=== PATIENT | male | born 1935 | race Caucasian/White ===

== ENCOUNTER 2023-02-19 15:04 | Emergency (ER) | payer MEDICARE, OTHER, SELFPAY ==
[2021-09-24 18:38] VITALS: BMI 29.2
[2023-02-19 15:15] VITALS: BP 142/68; PULSE 89; RESP 20; TEMP 36.3; O2SAT 98; BMI 31.2
[2023-02-19 15:32] VITALS: BP 199/86; PULSE 85; RESP 20; TEMP 36.5; O2SAT 99
--- NOTE | 2023-02-19 15:35 | DI.RAD.S_ITS ---
PROCEDURE: XR CHEST 1V INDICATIONS: Shortness of breath TECHNIQUE: One view of the chest was acquired. COMPARISON: [facility], , XR CHEST 1V, 12/16/2020, 13:04. [facility], , CHEST 2 VIEW, 10/10/2015, 11:05. FINDINGS: Surgical changes and devices: None. Lungs and pleura: Lungs are difficult to accurately assess due to reduced inspiratory volume and there is at least mild lung base atelectasis. No pleural effusions or pneumothorax. Mediastinum: Mediastinal contours appear normal. Heart size is normal. Bones and chest wall: No suspicious bony lesions. Overlying soft tissues appear unremarkable. IMPRESSION: Reduced inspiratory volume, which causes mild lung base atelectasis. A definite pneumonia is not found. Depending on the clinical status follow-up by deep inspiratory two-view chest may be warranted. Dictated by: Kraig Vaughn M.D. on 02/19/2023 at 16:05 Approved by: Kraig Vaughn M.D. on 02/19/2023 at 16:06
--- NOTE | 2023-02-19 15:42 | ED.GENADULT ---
HPI - General Adult General Chief complaint: Shortness of Breath/Dyspnea Stated complaint: cough Time Seen by Provider: 02/19/23 15:33 Source: patient Mode of arrival: Ambulatory Limitations: no limitations History of Present Illness HPI narrative: 87-year-old male. History of CLL. Is being followed by Oncology. He states he is just being ?monitored? currently. Not receiving active treatment. No prior history of heart disease. He is here for evaluation of approximately 3 weeks of progressively worsening cough/orthopnea, shortness of breath. No chest pain. He is having lower extremity swelling that has been there for the past week or so. Abdominal swelling that has also been the past week as well. He contacted his primary doctor's office who advised that he come to the emergency department if his symptoms worsened. He is having to sleep in a chair at night because he can not lay flat because of his shortness of breath. He denies sore throat. Is having quite a bit of sinus congestion. No headache. Related Data Home Medications Medication Instructions Recorded Confirmed aspirin 81 mg tablet,delayed 81 mg PO BEDTIME ##0 06/18/10 09/24/21 release multivitamin 1 tab PO DAILY ##0 06/18/10 09/24/21 flaxseed oil 1,000 mg capsule 1 cap PO DAILY ##0 12/27/11 09/24/21 atorvastatin 80 mg tablet (Lipitor) 80 mg PO QAM ##0 03/30/17 09/24/21 ferrous sulfate 325 mg (65 mg 65 mg PO BEDTIME ##0 03/30/17 09/24/21 iron) tablet (Iron (ferrous sulfate)) nitroglycerin 0.4 mg sublingual 0.4 mg sublingual PRN PRN Chest 03/30/17 09/24/21 tablet (Nitrostat) Pain ##0 Lions Rohit 1 cap PO DAILY cognition 12/16/20 09/24/21 Tumeric 1 tab PO DAILY 12/16/20 09/24/21 cholecalciferol (vitamin D3) 25 1,000 unit PO DAILY 12/16/20 09/24/21 mcg (1,000 unit) tablet (Vitamin D3) coQ10 (ubiquinol) 100 mg capsule 100 mg PO DAILY 12/16/20 09/24/21 losartan 25 mg tablet 25 mg PO BEDTIME 12/16/20 09/24/21 omega-3 fatty acids 1,000 mg PO DAILY 12/16/20 09/24/21 Previous Rx's Medication Instructions Recorded acetaminophen 500 mg capsule 500 mg PO Q4H PRN Pain, Mild (1-3) 09/26/21 #90 caps docusate sodium 100 mg capsule 100 mg PO BID PRN Constipation 09/26/21 from narcotic pain meds #20 caps hydroxyzine pamoate 25 mg capsule 25 mg PO Q4HR PRN Muscle 09/26/21 spasm/pain/nausea #40 caps tramadol 50 mg tablet See Rx Instructions .Route 09/26/21 .COMPLEX PRN Pain, Moderate (4-6) #42 tabs furosemide 40 mg tablet (Lasix) 40 mg PO DAILY 7 days #7 tabs 02/19/23 Allergies Allergy/AdvReac Type Severity Reaction Status Date / Time enalapril Allergy Pt does Verified 01/18/23 13:52 not remember hydrocodone [HYDROCODONE] AdvReac Severe HYPOTENSION, Verified 01/18/23 13:52 I GO OUT ibuprofen AdvReac Severe Extreme Verified 01/18/23 13:52 nervousness niacin [NIACIN] AdvReac Severe NERVOUSNESS Verified 01/18/23 13:52 oxycodone [OXYCODONE] AdvReac Severe HYPOTENSION, Verified 01/18/23 13:52 I GO OUT carvedilol [CARVEDILOL] AdvReac Intermediate SYNCOPE, Verified 01/18/23 13:52 LIGHTHEADED Review of Systems Review of Systems ROS Unobtainable: All systems reviewed & are unremarkable except as noted in HPI and below Patient History Medical History Shoulder injury Anesthesia complication History of falling Insomnia Easy bruisability Arthritis RBBB (right bundle branch block) Syncope Dizziness Renal insufficiency Hyperlipidemia Hypertension CLL (chronic lymphocytic leukemia) Surgical History Status post reverse arthroplasty of right shoulder (04/05/20) Hx of foot surgery History of surgery History of total right hip arthroplasty Hx of bilateral cataract extraction Hx of hemorrhoidectomy History of loop recorder Hx of heart artery stent (2009) History of total left hip arthroplasty (~04/05/17) Social History household members: spouse and children Smoking Status: Former smoker alcohol intake: former Smoking Status: Former smoker alcohol intake frequency: a few times a week Substance Use Type: does not use Exam Initial Vital Signs Initial Vital Signs: Vital Signs Temperature 97.3 F L 02/19/23 15:15 Pulse Rate 89 02/19/23 15:15 Respiratory Rate 20 02/19/23 15:15 Blood Pressure 142/68 H 02/19/23 15:15 Pulse Oximetry 98 02/19/23 15:15 Oxygen Delivery Method Room Air 02/19/23 15:15 Const General: cooperative, comfortable and No ill appearing HENMT Head: normal to inspection and normocephalic Resp Effort & Inspection: normal respiratory effort, not labored and not tachypneic Auscultation: crackles Cardio Rate: regular rate Rhythm: regular rhythm GI Inspection: distended Palpation: soft, No firm and No guarding Skin General: no rashes or lesions noted Neuro General: patient alert, patient awake and moves all extremities Extrem General: edema Course Orders Ordered: ED Orders 02/19/23 15:35 XR chest 1V Stat Complete Blood Count AUTO DIFF Stat Comprehensive Metabolic Panel Stat Lipase Stat NT-proBNP (BNP-Adult 18+) Stat Troponin & CK Cardiac Panel Stat 02/19/23 15:37 EKG-12 Lead Stat 02/19/23 15:45 Respiratory Panel (Film Array) Stat Discontinued Medications Furosemide (Furosemide 40 Mg/4 Ml Vial) 40 mg IV NOW ONE Stop: 02/19/23 17:19 Last Admin: 02/19/23 17:36 Dose: 40 mg Documented By: SPF Vital Signs Vital signs: Vital Signs - 8 hr 02/19/23 15:15 02/19/23 15:32 02/19/23 16:30 Temperature 97.3 F L 97.7 F Pulse Rate 89 85 Respiratory Rate 20 20 Blood Pressure 142/68 H 199/86 H 158/79 H Pulse Oximetry 98 99 Oxygen Delivery Method Room Air Room Air 02/19/23 17:53 Temperature Pulse Rate 83 Respiratory Rate 24 Blood Pressure Pulse Oximetry 96 Oxygen Delivery Method Room Air Medical Decision Making Lab Data Lab results reviewed: Yes I reviewed the patient's lab results. 02/19/23 15:35 02/19/23 15:35 Labs: Lab Results 01/05/24 01/05/24 Range/Units 15:35 15:45 WBC 41.1 H* (4.5-11.0) X10^3/uL RBC 4.10 L (4.5-5.9) X10^6/uL Hgb 12.7 L (13.5-17.5) g/dL Hct 38.4 L (41-53) % MCV 93.8 (80-100) fL MCH 31.1 (26-34) PG MCHC 33.1 (30-36) % RDW 14.0 (11.6-14.8) % Plt Count 206 (150-400) X10^3/uL Neut % (Auto) Not Reportable Lymph % (Auto) Not Reportable Pitkin % (Auto) Not Reportable Eos % (Auto) Not Reportable Baso % (Auto) Not Reportable Lymph # (Auto) Not Reportable Pitkin # (Auto) Not Reportable Baso # (Auto) Not Reportable Total Counted 100 Seg Neutrophils % 11.0 L (38-70) % Lymphocytes % (Manual) 86.0 H (25-45) % Atypical Lymphs % 2.0 H ( - 0) % Monocytes % (Manual) 1.0 L (2-11) % Neutrophils # (Manual) 4521 (4307-0138) /uL Smudge Cells 2+ H RBC Morphology Normal morphology Sodium 137 (137-145) mmol/L Potassium 4.1 (3.4-5.1) mmol/L Chloride 103 (98-107) mmol/L Carbon Dioxide 25 (22-32) mmol/L BUN 23 H (9-20) mg/dL Creatinine 1.26 H (0.66-1.25) mg/dL Estimated GFR 55 L (>60) mL/min BUN/Creatinine Ratio 18.3 (6-22) Glucose 119 H (80-110) mg/dL Calcium 9.6 (8.4-10.2) mg/dL Total Bilirubin 0.9 (0.2-1.3) mg/dL AST 160 H (17-59) IU/L ALT 104 H (<50) IU/L Alkaline Phosphatase 76 (38-126) U/L Total Creatine Kinase 6086 H (55-170) U/L Troponin I < 0.012 (0.01-0.034) ng/mL NT-Pro-B Natriuret Pep 196 (<450) pg/mL Total Protein 7.2 (6.3-8.2) g/dL Albumin 4.2 (3.5-5.0) g/dL Globulin 3.0 (1.7-4.1) g/dL Albumin/Globulin Ratio 1.4 (1.0-2.8) Lipase 140 (23-300) U/L Chlamy pneumoniae PCR Not detected (Not Detect) Adenovirus (PCR) Not detected (Not Detect) B.parapertussis DNA PCR Not detected (Not Detecte) Coronavirus OC43 (PCR) Not detected (Not Detect) Coronavirus HKU1 (PCR) Not detected (Not Detect) Coronavirus 229E (PCR) Not detected (Not Detect) SARS-CoV-2 (PCR) Detected H (Not Detecte) Coronavirus NL63 (PCR) Not detected (Not Detect) Human Metapneumovir PCR Not detected (Not Detect) Influenza Type A (PCR) Not detected (Not Detect) Influenza Type B (PCR) Not detected (Not Detect) M. pneumoniae (PCR) Not detected (Not Detect) Parainfluenza 1 (PCR) Not detected (Not Detect) Parainfluenza 2 (PCR) Not detected (Not Detect) Parainfluenza 3 (PCR) Not detected (Not Detect) Parainfluenza 4 (PCR) Not detected (Not Detect) RSV (PCR) Not detected (Not Detect) Entero/Rhino (PCR) Not detected (Not Detect) Imaging Data Chest x-ray: Radiologist's Impression: PROCEDURE: XR CHEST 1V INDICATIONS: Shortness of breath TECHNIQUE: One view of the chest was acquired. COMPARISON: [facility], XR CHEST 1V, 12/16/2020, 13:04. [facility], CHEST 2 VIEW, 10/10/2015, 11:05. FINDINGS: Surgical changes and devices: None. Lungs and pleura: Lungs are difficult to accurately assess due to reduced inspiratory volume and there is at least mild lung base atelectasis. No pleural effusions or pneumothorax. Mediastinum: Mediastinal contours appear normal. Heart size is normal. Bones and chest wall: No suspicious bony lesions. Overlying soft tissues appear unremarkable. IMPRESSION: Reduced inspiratory volume, which causes mild lung base atelectasis. A definite pneumonia is not found. Depending on the clinical status follow-up by deep inspiratory two-view chest may be warranted. ECG Data Attestation: I personally reviewed and interpreted this ECG as follows: Interpretation: Sinus rhythm Ventricular rate of 84 Occasional PVC Right bundle-branch block QRS 1 for [address] T wave changes MDM Narrative Medical decision making narrative: Patient is fluid overloaded with bilateral lower extremity edema. Low suspicion for cellulitis. Patient is also having some abdominal distention most likely edema as well. His BNP is unremarkable. Chest x-ray shows no signs of of edema. He does have leukocytosis but also has a history of CLL. No fevers. He is COVID positive. He was informed of this. I suspect that he is having edema and also COVID-19 which is the source of his symptoms. Plan will be is to place him on Lasix for the next week. Advised that he contact his primary doctor for follow-up. We discussed quarantine with regard to COVID-19. He was given return precautions. He expressed understanding and agreement. Discharge Plan Departure Patient Disposition: Home Clinical Impression: COVID-19, Peripheral edema Instructions: DI for Peripheral Edema -- Bilateral, COVID-19 Activity Restrictions/Additional Instructions: Your positive for COVID-19. Recommend that you follow all current CDC guidelines with regard to quarantine. These can be found on the CDC website. Also recommend that you contact your primary doctor for a follow-up. A prescription for a medicine called Lasix/furosemide was sent to [facility]. Take this medication like we discussed. Return to the emergency department for new symptoms. Prescriptions: New furosemide [Lasix] 40 mg tablet 40 mg PO DAILY 7 Days Qty: 7 0RF No Action aspirin 81 MG tablet,delayed release (DR/EC) 81 mg PO BEDTIME Qty: 0 multivitamin Tablet 1 tab PO DAILY Qty: 0 flaxseed oil 1,000 mg Capsule 1 cap PO DAILY Qty: 0 atorvastatin [Lipitor] 80 MG tablet 80 mg PO QAM Qty: 0 nitroglycerin [Nitrostat] 0.4 MG tablet, sublingual 0.4 mg Sublingual PRN PRN (Reason: Chest Pain) Qty: 0 Patient Comments: carries but never used yet ferrous sulfate [Iron (ferrous sulfate)] 325 MG tablet 65 mg PO BEDTIME Qty: 0 losartan 25 mg Tablet 25 mg PO BEDTIME omega-3 fatty acids Capsule 1,000 mg PO DAILY cholecalciferol (vitamin D3) [Vitamin D3] 25 mcg (1,000 unit) Tablet 1,000 unit PO DAILY coQ10 (ubiquinol) 100 mg Capsule 100 mg PO DAILY Lions Rohit 1 cap PO DAILY Tumeric 1,000 mg tablet 1 tab PO DAILY acetaminophen 500 mg capsule 500 mg PO Q4H MDD Max 3000 mg per day PRN (Reason: Pain, Mild (1-3)) Qty: 90 0RF docusate sodium 100 mg Capsule 100 mg PO BID PRN (Reason: Constipation from narcotic pain meds) Qty: 20 0RF hydroxyzine pamoate 25 mg Capsule 25 mg PO Q4HR PRN (Reason: Muscle spasm/pain/nausea) Qty: 40 0RF tramadol 50 mg Tablet See Rx Instructions .ROUTE .COMPLEX PRN (Reason: Pain, Moderate (4-6)) Qty: 42 0RF Rx Instructions: Take 1-2 tablets by mouth every 4 hours as needed for moderate to severe postop pain (max 8 tabs per day) Referrals: Jose Moura MD [Primary Care Provider] - Stand Alone Forms: Patient Portal/API
[2023-02-19 15:52] LABS: Hematocrit 38.4 % (41-53); Hemoglobin 12.7 g/dL (13.5-17.5); Mean Corpuscular HGB Conc 33.1 % (30-36); Mean Corpuscular Hemoglobin 31.1 PG (26-34); Mean Corpuscular Volume 93.8 fL (80-100); Platelet Count 206 X10^3/uL (150-400)
[2023-02-19 15:55] LABS: Alanine Aminotransferase 104 IU/L (<50); Albumin 4.2 g/dL (3.5-5.0); Albumin Globulin Ratio 1.4 (1.0-2.8); Alkaline Phosphatase 76 U/L (38-126); Aspartate Aminotransferase 160 IU/L (17-59); BUN Creatinine Ratio 18.3 (6-22); Bilirubin Total 0.9 mg/dL (0.2-1.3); Blood Urea Nitrogen 23 mg/dL (9-20); Calcium 9.6 mg/dL (8.4-10.2); Carbon Dioxide 25 mmol/L (22-32); Chloride 103 mmol/L (98-107); Estimated Glomerular Filt Rate 55 mL/min (>60); Glucose 119 mg/dL (80-110); HEMOLYSIS < 15 (0-50); Lipase 140 U/L (23-300); Potassium 4.1 mmol/L (3.4-5.1); Sodium 137 mmol/L (137-145); Total Protein 7.2 g/dL (6.3-8.2)
[2023-02-19 15:59] LABS: Add Manual Diff / Slide Review YES; White Blood Cell Count 41.1 X10^3/uL (4.5-11.0)
[2023-02-19 16:06] LABS: NT-proBNP (BNP-Adult 18+) 196 pg/mL (<450); Troponin I < 0.012 ng/mL (0.01-0.034)
[2023-02-19 16:12] LABS: Neutrophils Absolute Manual 4521 /uL (3000-5900); Total Cells Counted 100
[2023-02-19 16:13] LABS: RBC Morphology Normal Morphology; Smudge Cells 2+
--- NOTE | 2023-02-19 16:13 | PC.NURSE ---
Pt reports his head feeling congested like a balloon, having a cough the past 3 weeks, and swelling in his legs, abdomen, and arms the past week. Pt states sleeps in a chair sitting up and shortness of breath with laying flat. He denies having pain. History of CLL the past 10 years
[2023-02-19 16:16] LABS: Creatine Kinase 6086 U/L (55-170)
[2023-02-19 16:30] VITALS: BP 158/79
[2023-02-19 17:08] LABS: Adenovirus Not Detected (Not Detect); B. parapertussis Not Detected (Not Detecte); Bordetella pertussis Not Detected (Not Detect); Chlamydophila pneumoniae Not Detected (Not Detect); Coronavirus 229E Not Detected (Not Detect); Coronavirus HKU1 Not Detected (Not Detect); Coronavirus NL 63 Not Detected (Not Detect); Coronavirus OC43 Not Detected (Not Detect); Human Metapneumovirus Not Detected (Not Detect); Human Rhinovirus/Enterovirus Not Detected (Not Detect); Influenza A Not Detected (Not Detect); Influenza B Not Detected (Not Detect); Mycoplasma pneumoniae Not Detected (Not Detect); Parainfluenza Virus 1 Not Detected (Not Detect); Parainfluenza Virus 2 Not Detected (Not Detect); Parainfluenza Virus 3 Not Detected (Not Detect); Parainfluenza Virus 4 Not Detected (Not Detect); Respiratory Syncytial Virus Not Detected (Not Detect); SARS- CoV-2 Detected (Not Detecte)
[2023-02-19] MEDS: FUROSEMIDE 40 MG/4 ML VIAL IV (17:36)
[2023-02-19 17:53] VITALS: PULSE 83; RESP 24; O2SAT 96
[2023-02-19 18:35] VITALS: BP 149/70; PULSE 81; RESP 20; O2SAT 97
== END 2023-02-19 18:36 | disposition home or self-care (01) ==
PROVIDERS: Emergency Provider Emergency Medicine; PCP Family Medicine
DX: U07.1 COVID-19 (principal); R60.0 Localized edema; R14.0 Abdominal distension (gaseous)
CPT/HCPCS: 36415; 71045; 80053; 82550; 83690; 83880; 84484; 85007; 85025; 87633; 93005; 96374; 99284; J1940

== ENCOUNTER → 2023-06-21 07:59 | Outpatient (CLI) | payer OTHER, SELFPAY ==
[2021-09-24 18:38] VITALS: BMI 29.2
--- NOTE | 2023-06-21 08:02 | DI.RAD.S_ITS ---
PROCEDURE: XR SHOULDER RT MIN 2V INDICATIONS: SHOULDER PAIN TECHNIQUE: 3 views of the shoulder were acquired. COMPARISON: [facility] With [facility], CR, XR SHOULDER RT MIN 2V, 01/18/2023, 14:08. Merged With [facility], CR, XR SHOULDER RT MIN 2V, 05/12/2021, 23:48. FINDINGS: Bones: No fractures or dislocations. No suspicious bony lesions. Visualized ribs appear intact. Well-aligned, intact arthroplasty without hardware complication. Acromioclavicular joint space narrowing with osteophytosis. Soft tissues: No suspicious soft tissue calcifications. IMPRESSION: Stable alignment of the right shoulder arthroplasty, without hardware complication. Moderate AC joint osteoarthritis. Dictated by: Sharan Dawn M.D. on 06/21/2023 at 11:50 Approved by: Sharan Dawn M.D. on 06/21/2023 at 11:51
[2023-06-21 09:31] LABS: Hematocrit 42.1 % (41-53); Hemoglobin 13.9 g/dL (13.5-17.5); Mean Corpuscular HGB Conc 32.9 % (30-36); Mean Corpuscular Hemoglobin 31.1 PG (26-34); Mean Corpuscular Volume 94.4 fL (80-100); Platelet Count 168 X10^3/uL (150-400); Red Blood Cell Count 4.46 X10^6/uL (4.5-5.9); Red Cell Distribution Width 14.3 % (11.6-14.8)
[2023-06-21 09:32] LABS: Add Manual Diff / Slide Review YES
[2023-06-21 10:59] LABS: White Blood Cell Count 50.4 X10^3/uL (4.5-11.0)
[2023-06-21 11:43] LABS: Neutrophils Absolute Manual 2520 /uL (3000-5900); Platelet Estimate Adequate on smear; RBC Morphology Normal Morphology; Total Cells Counted 100
[2023-06-21 11:45] LABS: Smudge Cells 2+
== END ==
LOC: RAD 08:01
PROVIDERS: PCP Family Medicine; Referring Provider Chiropractor; Visit Provider Chiropractor
DX: C95.90 Leukemia, unspecified not having achieved remission (principal); M19.011 Primary osteoarthritis, right shoulder; Z96.611 Presence of right artificial shoulder joint
CPT/HCPCS: 23929; 36415; 73030; 85007; 85025